=== PATIENT | female | born 1995 | race Caucasian/White ===

== ENCOUNTER 2017-08-07 19:24 | Emergency (ER) | payer OTHER ==
[~2017-08-07] VITALS: Ht 180.3 cm; Wt 74.8 kg
[2017-08-07] MEDS ORDERED: METHADOSE40 MG PO (19:31)
[2017-08-07 19:56] LABS: INFLUENZA A ANTIGEN None Detected (None Detect); INFLUENZA B ANTIGEN None Detected (None Detect)
[2017-08-07] MEDS ORDERED: PREDNISONE50 MG PO (20:17)
[2017-08-07] MEDS ORDERED: PROMETHAZINE/C118 ML PO (20:17)
[2017-08-07] MEDS ORDERED: PROAIR HFA8.5 GM INH (20:17)
[2017-08-07 20:22] LABS: URINE BILIRUBIN NEGATIVE (Negative); URINE BLOOD NEGATIVE (Negative); URINE CLARITY CLEAR; URINE COLOR YELLOW; URINE GLUCOSE-RANDOM NEGATIVE (Negative); URINE KETONES NEGATIVE (Negative); URINE LEUKOCYTES-REFLEX NEGATIVE (Negative); URINE NITRITE-REFLEX NEGATIVE (Negative); URINE PROTEIN NEGATIVE (Negative); URINE SPECIFIC GRAVITY 1.015 (1.005-1.030)
[2017-08-07] MEDS ORDERED: AEROCHAMBER MV1 EACH PO (20:38)
[2017-08-07 20:45] VITALS: BP 114/68
== END 2017-08-07 20:46 | disposition home or self-care (01) ==
LOC: M.ERS 19:24
PROVIDERS: Emergency Medicine
DX: J40 Bronchitis, not specified as acute or chronic (principal); F17.210 Nicotine dependence, cigarettes, uncomplicated

== ENCOUNTER 2017-10-16 13:58 | Emergency (ER) | payer OTHER ==
[~2017-10-16] VITALS: Ht 180.3 cm; Wt 65.8 kg
[~2017-10-16 13:58] MED LIST: AEROCHAMBER MV1 EACH PO; METHADOSE40 MG PO; PREDNISONE50 MG PO; PROAIR HFA8.5 GM INH; PROMETHAZINE/C118 ML PO
[2017-10-16] MEDS ORDERED: TRAMADOL 50 MG50 MG PO ×3 (14:30→14:31)
[2017-10-16] MEDS ORDERED: PREDNISONE 20 M20 MG PO (14:30)
[2017-10-16 14:51] VITALS: BP 101/52
== END 2017-10-16 14:52 | disposition home or self-care (01) ==
LOC: M.ERS 13:58
DX: M54.42 Lumbago with sciatica, left side (principal); F17.210 Nicotine dependence, cigarettes, uncomplicated